=== PATIENT | male | born 1955 | race Caucasian/White ===

== ENCOUNTER 2020-04-28 13:33 | Emergency (ER) | payer MEDICARE ==
[~2020-04-28] VITALS: Ht 188 cm; Wt 100.0 kg
--- NOTE | 2020-04-28 13:45 | NUR ---
PT CODE 250 FOR WEAKNESS, DIZZINESS, DIAPHORESIS IN LAB. PT BROUGHT TO ER, GLUCOMETER READING 41. GIVEN 2 ORANGE JUICES, IV ETABLISHED, DEXTROSE IVP PER VERBAL ORDERS BY MD MOHAN. PT STATES HE IS FEELING BETTER AFTER JUICE. A&OX4. DENIES CP OR SOB. TUNG NUT GROWER IN PLACE.
[2020-04-28] MEDS ORDERED: INSU100V8 SQ (13:53)
[2020-04-28] MEDS ORDERED: INSU200I SQ-INSULIN (13:56)
[2020-04-28] MEDS ORDERED: METF1000 PO (13:56)
[2020-04-28] MEDS ORDERED: CLOP75TA52 PO (13:57)
[2020-04-28] MEDS ORDERED: CARV3.1212 PO (13:57)
[2020-04-28] MEDS ORDERED: ATOR80TA PO (13:58)
[2020-04-28] MEDS ORDERED: ASPI81TA45 PO (13:59)
[2020-04-28] MEDS ORDERED: NITR0.4T28 SL (13:59)
[2020-04-28] MEDS ORDERED: DEXTROSE 50%, 50ML SYRINGE IVPush ONE ×2 (14:00)
[2020-04-28] MEDS ORDERED: DIPH25CA61 PO (14:01)
[2020-04-28 14:19] LABS: BASOPHILS # (AUTO) 0.04 x10^3/uL (0-0.1); BASOPHILS % (AUTO) 0 % (0-1); EOSINOPHILS # (AUTO) 0.17 x10^3/uL (0-0.4); EOSINOPHILS % (AUTO) 2 % (1-7); LYMPHOCYTES # (AUTO) 2.23 x10^3/uL (1-3.4); LYMPHOCYTES % (AUTO) 25 % (22-44); MD NO; MEAN CORPUSCULAR HEMOGLOBIN 30.8 pg (27.5-34.5); MEAN CORPUSCULAR VOLUME 93.3 fL (81-97); MEAN PLATELET VOLUME 8.6 fL (7.4-10.4); MONOCYTES # (AUTO) 1.04 x10^3/uL (0.2-0.8); MONOCYTES % (AUTO) 12 % (2-9); NEUTROPHILS # (AUTO) 5.49 x10^3/uL (1.8-6.8); NEUTROPHILS % (AUTO) 61 % (42-75); PLATELET COUNT 264 x10^3/uL (130-400); RED BLOOD COUNT 5.31 x10^6/uL (4.38-5.82)
[2020-04-28 14:23] LABS: ALANINE AMINOTRANSFERASE 35 U/L (12-78); ALBUMIN 4.3 g/dL (3.4-5.0); ANION GAP 6 mmol/L (5-15); CALCIUM 9.5 mg/dL (8.5-10.1); CHLORIDE 108 mmol/L (98-107); CREATININE 1.11 mg/dL (0.7-1.3)
[2020-04-28 14:25] LABS: ALKALINE PHOSPHATASE 90 U/L (45-117); BILIRUBIN,TOTAL 0.4 mg/dL (0.2-1.0); TOTAL PROTEIN 8.2 g/dL (6.4-8.2)
--- NOTE | 2020-04-28 14:30 | NUR ---
GLUCOMETER CHECK 148. PT FEELING BETTER, VSS
[2020-04-28 14:34] VITALS: BP 148/80
--- NOTE | 2020-04-28 14:54 | NUR ---
OK TO EAT PER MD, RECHECK GLUCOSE IN 1 HR
--- NOTE | 2020-04-28 15:23 | NUR ---
MEAL TRAY TO PT.
--- NOTE | 2020-04-28 16:11 | NUR ---
PT AMBULATED TO BATHROOM FSBS 119. PT FEELING WELL. READY TO DC.
--- NOTE | 2020-04-28 16:48 | NUR ---
Patient/Caregiver given discharge instructions and they have confirmed that they understand the instructions. Patient ambulatory with steady gait.
== END 2020-04-28 16:52 | disposition home or self-care (01) ==
LOC: ED 14:53
DX: E10.649 Type 1 diabetes mellitus with hypoglycemia without coma (principal); R53.1 Weakness; R42 Dizziness and giddiness
CPT/HCPCS: 80053; 82962; 85025; 96374; 99283

== ENCOUNTER → 2020-04-28 | Outpatient (CLI) | payer MEDICARE ==
[~2020-04-28] MED LIST: ASPI81TA45 PO; ATOR80TA PO; CARV3.1212 PO; CLOP75TA52 PO; DIPH25CA61 PO; INSU100V8 SQ; INSU200I SQ-INSULIN; METF1000 PO; NITR0.4T28 SL
[2020-04-28 18:06] LABS: BASOPHILS # (AUTO) 0.02 x10^3/uL (0-0.1); BASOPHILS % (AUTO) 0 % (0-1); EOSINOPHILS # (AUTO) 0.11 x10^3/uL (0-0.4); EOSINOPHILS % (AUTO) 1 % (1-7); LYMPHOCYTES % (AUTO) 17 % (22-44); MD NO; MEAN CORPUSCULAR HEMOGLOBIN 30.9 pg (27.5-34.5); MEAN CORPUSCULAR HGB CONC 33.1 g/dL (33.2-36.2); MEAN CORPUSCULAR VOLUME 93.4 fL (81-97); MEAN PLATELET VOLUME 7.8 fL (7.4-10.4); MONOCYTES # (AUTO) 0.67 x10^3/uL (0.2-0.8); MONOCYTES % (AUTO) 9 % (2-9); NEUTROPHILS # (AUTO) 5.72 x10^3/uL (1.8-6.8); NEUTROPHILS % (AUTO) 73 % (42-75); PLATELET COUNT 240 x10^3/uL (130-400); RED BLOOD COUNT 5.05 x10^6/uL (4.38-5.82); RED CELL DISTRIBUTION WIDTH 14.1 % (9.4-14.8)
[2020-04-28 18:10] LABS: MICROSCOPIC NOT IND
[2020-04-28 19:14] LABS: ANION GAP 7 mmol/L (5-15); CALCIUM 8.9 mg/dL (8.5-10.1); CHLORIDE 106 mmol/L (98-107); CREATININE 1.07 mg/dL (0.7-1.3)
== END | disposition home or self-care (01) ==
LOC: CARD 17:18
PROVIDERS: ATTEND Orthopaedic Surgery
DX: Z01.818 Encounter for other preprocedural examination (principal); M25.562 Pain in left knee; M25.561 Pain in right knee; R94.31 Abnormal electrocardiogram [ECG] [EKG]
CPT/HCPCS: 36415; 80048; 81003; 85025; 93005

== ENCOUNTER 2020-05-03 09:37 | Observation (INO) | payer MEDICARE ==
[~2020-05-03] VITALS: Ht 188 cm; Wt 111.9 kg
[2020-05-03] MEDS ORDERED: LACTATED RINGERS 1,000 ML IV SCH (10:25)
[2020-05-03] MEDS ORDERED: CHLORHEXIDINE 15 ML UDC MM ONE (10:30)
[2020-05-03 10:36] VITALS: BP 164/85
[2020-05-03] MEDS ORDERED: KETOROLAC 60 MG/2 ML ONE (11:02)
[2020-05-03] MEDS ORDERED: EPINEPHRINE 1 MG/ML, 1ML ONE (11:03)
[2020-05-03] MEDS ORDERED: ROPIvacaine/PF 0.2%, 20 ML ONE (11:03)
[2020-05-03] MEDS ORDERED: TRANEXAMIC ACID 100 MG/ML, 10ML ONE (11:03)
[2020-05-03] MEDS ORDERED: SODIUM CHLORIDE 0.9% 100 ML ONE (11:03)
[2020-05-03] MEDS ORDERED: FENTANYL PF 250 MCG/5ML ONE (12:36)
[2020-05-03] MEDS ORDERED: FENTANYL PF 100 MCG/2ML ONE ×3 (14:17→15:17)
[2020-05-03] MEDS ORDERED: PROPOFOL 50 ML ONE (14:24)
[2020-05-03] MEDS ORDERED: PROPOFOL 10 MG/ML, 20ML ONE (14:45)
[2020-05-03] MEDS ORDERED: GLYCOPYRROLATE 0.2MG/1ML, 5ML ONE (14:45)
[2020-05-03] MEDS ORDERED: DEXAMETHASONE 4 MG/ML, 1ML ONE (14:45)
[2020-05-03] MEDS ORDERED: NEOSTIGMINE 1 MG/ML, 10ML ONE (14:45)
[2020-05-03] MEDS ORDERED: ROCURONIUM 10MG/ML,5ML ONE (14:45)
[2020-05-03] MEDS ORDERED: ONDANSETRON 2MG/ML, 2ML ONE (14:45)
[2020-05-03] MEDS ORDERED: CEFAZOLIN 1,000 MG ONE (14:45)
[2020-05-03] MEDS ORDERED: SUCCINYLCHOLINE 20 MG/ML, 10ML ONE (14:45)
[2020-05-03] MEDS ORDERED: hydrALAzine 20 MG/ML, 1ML ONE (15:17)
[2020-05-03] MEDS ORDERED: OXYcodone 5 MG/5 ML ORAL.SOL UDC ONE (15:17)
[2020-05-03] MEDS ORDERED: ALBUTEROL HFA 90 MCG/SPRAY ONE (15:21)
[2020-05-03] MEDS ORDERED: GLUCAGON 1 MG IM PRN (15:30)
[2020-05-03] MEDS ORDERED: CEFAZOLIN PMX 1GM/50ML 50 ML IVPB SCH (15:30)
[2020-05-03] MEDS ORDERED: DEXTROSE 4 GM TAB.CHEW PO PRN (15:30)
[2020-05-03] MEDS ORDERED: DIPHENHYDRAMINE 50 MG/ML, 1ML IVPush PRN (15:30)
[2020-05-03] MEDS ORDERED: PROMETHAZINE 12.5 MG SUPP PR PRN (15:30)
[2020-05-03] MEDS ORDERED: KETOROLAC 30 MG/1 ML IV SCH (15:30)
[2020-05-03] MEDS ORDERED: DEXTROSE 50%, 50ML SYRINGE IVPush PRN (15:30)
[2020-05-03] MEDS ORDERED: ALBUTEROL HFA 90 MCG/SPRAY INH ONE (15:30)
[2020-05-03] MEDS ORDERED: hydrALAzine 20 MG/ML, 1ML IV PRN ×2 (15:30→16:00)
[2020-05-03] MEDS ORDERED: DIAZEPAM 5 MG TABLET PO PRN (15:30)
[2020-05-03] MEDS ORDERED: PSYLLIUM PACKET PO PRN (15:30)
[2020-05-03] MEDS ORDERED: ONDANSETRON 4 MG TABLET PO PRN (15:30)
[2020-05-03] MEDS ORDERED: HYDROmorphone 1 MG/ML, 1ML INJ IVPush PRN ×2 (15:30→16:00)
[2020-05-03] MEDS ORDERED: NITROGLYCERIN SINGLE TAB 0.4 MG SL PRN (15:30)
[2020-05-03] MEDS: FENTANYL PF 100 MCG/2ML IV PRN ×4 (15:35→16:10)
[2020-05-03] MEDS ORDERED: TRANEXAMIC ACID 1,000 MG in SODIUM CHLORIDE 0.9% 100 ML IVPB ONE (15:39)
[2020-05-03] MEDS ORDERED: KETOROLAC 30 MG/1 ML ONE (15:56)
[2020-05-03] MEDS ORDERED: MEPERIDINE/PF 25MG/0.5ML IVPush PRN (16:00)
[2020-05-03] MEDS ORDERED: PROMETHAZINE 25 MG/ML, 1ML IVPush PRN (16:00)
[2020-05-03] MEDS ORDERED: OXYcodone 5 MG/5 ML ORAL.SOL UDC PO PRN (16:00)
[2020-05-03] MEDS ORDERED: morphine SULFATE 10 MG/ML, 1ML IVPush PRN (16:00)
[2020-05-03] MEDS ORDERED: LABETALOL 5MG/ML, 20ML IV PRN (16:00)
[2020-05-03] MEDS ORDERED: INSULIN LISPRO SQ-INSULIN SCH (17:00)
[2020-05-03] MEDS: INSULIN REGULAR 100 UNITS/ML, 3ML VIAL SQ-INSULIN SCH (18:05)
[2020-05-03 19:33] VITALS: BP 127/66
[2020-05-03] MEDS: ATORVASTATIN 80 MG TABLET PO SCH (21:06)
[2020-05-03] MEDS: DIPHENHYDRAMINE 25 MG CAPSULE PO SCH (21:06)
[2020-05-03] MEDS: metFORMIN 500 MG TABLET PO SCH (21:06)
[2020-05-03] MEDS: DOCUSATE 100 MG CAPSULE PO SCH (21:06)
[2020-05-03] MEDS: CEFAZOLIN PMX 1GM/50ML 50 ML IVPB SCH (23:32)
[2020-05-04] MEDS: SODIUM CHLORIDE FLUSH 10ML SYR IVF SCH ×3 (00:30→21:05)
[2020-05-04] MEDS: INSULIN REGULAR 100 UNITS/ML, 3ML VIAL SQ-INSULIN SCH ×3 (00:31→11:13)
[2020-05-04] MEDS: KETOROLAC 30 MG/1 ML IV SCH ×2 (00:32→07:45)
[2020-05-04] MEDS: INSULIN GLARGINE 100 UNITS/ML, PEN SQ-INSULIN SCH ×2 (00:32→21:35)
[2020-05-04 01:03] VITALS: BP 124/73
[2020-05-04 03:38] VITALS: BP 142/77
[2020-05-04] MEDS: ASPIRIN 81 MG TABLET EC PO SCH ×2 (06:48→16:19)
[2020-05-04] MEDS: CEFAZOLIN PMX 1GM/50ML 50 ML IVPB SCH (07:45)
[2020-05-04] MEDS: DOCUSATE 100 MG CAPSULE PO SCH ×2 (07:46→21:05)
[2020-05-04] MEDS: CARVEDILOL 3.125 MG TABLET PO SCH (07:46)
[2020-05-04] MEDS: INSULIN LISPRO 100 UNIT/ML, 3ML VIAL SQ SCH ×3 (07:46→16:24)
[2020-05-04] MEDS: CLOPIDOGREL 75 MG TABLET PO SCH (07:47)
[2020-05-04] MEDS: metFORMIN 500 MG TABLET PO SCH ×2 (07:47→21:06)
[2020-05-04] MEDS ORDERED: ASPIRIN 81 MG TABLET EC PO SCH (09:00)
[2020-05-04 09:09] VITALS: BP 137/77
[2020-05-04] MEDS: OXYcodone/APAP 5/325MG TABLET PO PRN ×3 (11:05→16:19)
[2020-05-04 12:06] VITALS: BP 127/74
[2020-05-04] MEDS ORDERED: ALBUTEROL HFA 90 MCG/SPRAY INH PRN (14:30)
[2020-05-04 15:59] LABS: ANION GAP 5 mmol/L (5-15); CHLORIDE 103 mmol/L (98-107)
[2020-05-04 16:01] LABS: CREATININE 0.85 mg/dL (0.7-1.3)
[2020-05-04 16:20] LABS: MEAN CORPUSCULAR HEMOGLOBIN 30.3 pg (27.5-34.5); MEAN CORPUSCULAR HGB CONC 32.6 g/dL (33.2-36.2); MEAN CORPUSCULAR VOLUME 93.1 fL (81-97); PLATELET COUNT 178 x10^3/uL (130-400); RED BLOOD COUNT 3.93 x10^6/uL (4.38-5.82); RED CELL DISTRIBUTION WIDTH 13.9 % (9.4-14.8)
[2020-05-04] MEDS: INSULIN LISPRO 100 UNITS/ML, PEN SQ-INSULIN SCH ×2 (16:24→21:36)
[2020-05-04 16:48] LABS: MD YES
[2020-05-04 16:51] LABS: BAND#(MANUAL) 0.64 x10^3/uL; BANDS%(MANUAL) 7 % (0-7); LYMPH#(MANUAL) 0.46 x10^3/uL (1-3.4); LYMPHS% (MANUAL) 5 % (22-44); MONOS#(MANUAL) 0.91 x10^3/uL (0.3-2.7); MONOS% (MANUAL) 10 % (2-9); SEGS% (MANUAL) 78 % (42-75)
[2020-05-04 16:52] LABS: <PLATELET ESTIMATE> ADEQUATE; <PLT MORPHOLOGY> NORMAL PLT MORPH; <RBC MORPHOLOGY> NORMAL
[2020-05-04 20:03] VITALS: BP 146/74
[2020-05-04] MEDS: DIPHENHYDRAMINE 25 MG CAPSULE PO SCH (21:05)
[2020-05-04] MEDS: ATORVASTATIN 80 MG TABLET PO SCH (21:06)
[2020-05-05 01:02] VITALS: BP 145/78
[2020-05-05] MEDS: OXYcodone/APAP 5/325MG TABLET PO PRN ×2 (05:34→10:13)
[2020-05-05] MEDS: ASPIRIN 81 MG TABLET EC PO SCH (05:34)
[2020-05-05] MEDS: DOCUSATE 100 MG CAPSULE PO SCH (07:59)
[2020-05-05] MEDS: INSULIN LISPRO 100 UNIT/ML, 3ML VIAL SQ SCH (07:59)
[2020-05-05] MEDS: INSULIN LISPRO 100 UNITS/ML, PEN SQ-INSULIN SCH ×2 (07:59→11:11)
[2020-05-05 08:00] VITALS: BP 128/76
[2020-05-05] MEDS: CARVEDILOL 3.125 MG TABLET PO SCH (08:00)
[2020-05-05] MEDS: metFORMIN 500 MG TABLET PO SCH (08:00)
[2020-05-05] MEDS: CLOPIDOGREL 75 MG TABLET PO SCH (08:00)
[2020-05-05] MEDS: SODIUM CHLORIDE FLUSH 10ML SYR IVF SCH (08:01)
== END 2020-05-05 11:30 | disposition home or self-care (01) ==
LOC: OUT 09:37 → ORIP 15:09 → 4NE 16:40 → DCLOUNGE 05-05 11:21
PROVIDERS: ADMIT Orthopaedic Surgery; ATTEND Orthopaedic Surgery
DX: M17.12 Unilateral primary osteoarthritis, left knee (principal); Z20.828 Contact with and (suspected) exposure to other viral communicable diseases; R09.02 Hypoxemia; I10 Essential (primary) hypertension; E11.9 Type 2 diabetes mellitus without complications; I25.10 Atherosclerotic heart disease of native coronary artery without angina pectoris; J43.9 Emphysema, unspecified; F12.10 Cannabis abuse, uncomplicated; Z95.5 Presence of coronary angioplasty implant and graft; Z96.652 Presence of left artificial knee joint; Z87.891 Personal history of nicotine dependence; Z79.4 Long term (current) use of insulin; Z79.82 Long term (current) use of aspirin; Z79.899 Other long term (current) drug therapy
CPT/HCPCS: 27447; 71045; 73560; 80048; 82962; 85025; 87081; 87635; 96365; 96366; 96375; 96376; 97161; C1713; C1776; G0378; J0171; J0330; J0360; J0690; J1815; J1885; J2405; J2704; J2795; J3010; Q0163; J1100; J2710